=== PATIENT | male | born 1990 | race Caucasian/White ===

== ENCOUNTER → 2023-09-21 14:26 | Outpatient (BNVA) | payer OTHER, SELFPAY | PROVIDERS: Visit Provider Physician Assistant Medical | DX: S61.311A Laceration without foreign body of left index finger with damage to nail, initial encounter (principal); W31.89XA Contact with other specified machinery, initial encounter; Z23 Encounter for immunization | CPT/HCPCS: 99213 ==

== ENCOUNTER → 2023-09-28 15:26 | Outpatient (BNVA) | payer OTHER, SELFPAY | PROVIDERS: Visit Provider Physician Assistant Medical | DX: S61.311D Laceration without foreign body of left index finger with damage to nail, subsequent encounter (principal); W31.89XD Contact with other specified machinery, subsequent encounter | CPT/HCPCS: 99213 ==

== ENCOUNTER 2024-05-11 01:36 | Emergency (ER) | payer BC, SELFPAY ==
[2024-05-11 01:47] VITALS: BP 122/69; BP 133/67; PULSE 104; PULSE 97; RESP 16; TEMP 36.8; O2SAT 94; O2SAT 97; BMI 29.2
[2024-05-11 01:50] LABS: Glucose, Whole Blood 67 mg/dL (60-115)
[2024-05-11 01:53] VITALS: BP 122/69; PULSE 97; RESP 16; TEMP 36.8; O2SAT 94
[2024-05-11 02:06] LABS: MANUAL DIFF FLAG NO
[2024-05-11 02:08] LABS: Basophils Percent Auto 0.5 % (0-2); Eosinophils Absolute Auto 0.1 X10*3/uL (0.0-0.4); Eosinophils Percent Auto 1.1 % (0-4); Hematocrit 37.5 % (42.0-52.0); Hemoglobin 13.9 g/dl (14.0-18.0); Imm Gran Abs Auto 0.03 X10*3/uL (0.00-0.03); Imm Gran Pct Auto 0.4 % (0.0-0.4); Lymphocytes Absolute Auto 0.3 X10*3/uL (1.2-4.9); Lymphocytes Percent Auto 4.3 % (20-40); Mean Corpuscular HGB Conc 37.1 g/dl (31.0-36.0); Mean Corpuscular Hemoglobin 30.5 pg (27.0-33.0); Mean Corpuscular Volume 82.4 fL (80.0-98.0); Mean Platelet Volume 9.9 fL (9.4-12.4); Monocytes Absolute Auto 0.6 X10*3/uL (0.1-1.2); Monocytes Percent Auto 7.4 % (2-11); Neutrophils Absolute Auto 6.5 x10*3/uL (2.0-8.3); Neutrophils Percent Auto 86.3 % (45-73); Platelet Count 225 X10*3/uL (160-400); Red Blood Count 4.55 X10*6/uL (4.60-5.80); Red Cell Distribution Width 11.7 % (11.0-16.0); White Blood Count 7.5 X10*3/uL (4.8-10.8)
[2024-05-11 02:24] LABS: Anion Gap 14 (12-20); Blood Urea Nitrogen 19 mg/dL (9-16); Calcium 8.8 mg/dL (8.4-10.2); Carbon Dioxide 24 mmol/L (22-29); Chloride 105 mmol/L (96-108); Creatinine Clr Calc Pharmacy 136.5; Estimated Glomerular Filt Rate > 60; Glucose Random 69 mg/dL (60-115); Potassium 3.5 mmol/L (3.3-5.1); Sodium 139 mmol/L (135-145)
[2024-05-11 02:35] LABS: Glucose, Whole Blood 98 mg/dL (60-115)
--- NOTE | 2024-05-11 03:01 | ED_ITS ---
HPI - Abdominal Pain General Chief Complaint: Nausea/Vomiting/Diarrhea Stated Complaint: NAUSEA/VOMITING Time Seen by Provider: 05/11/24 02:15 Source: patient Mode of arrival: ambulatory Limitations: no limitations History of Present Illness ED Provider: HPI narrative: Patient is diabetic type1 was at soccer game not drinking enough noticed blood sugar been on the higher side used 21 units of insulin on arrival patient's blood sugar was 67 improved to 98 no abdominal pain no had slight nausea earlier no vomiting Related Data Previous Rx's ?Medication ?Instructions ?Recorded amoxicillin 875 mg-potassium 1 tab PO BID 10 days #20 tabs 09/18/23 clavulanate 125 mg tablet Allergies Allergy/AdvReac Type Severity Reaction Status Date / Time No Known Allergies Allergy Verified 05/11/24 01:50 Review of Systems Review of Systems Yes all other systems are reviewed and are negative [facility] Social History Social History Smoked in Last 30 Days: No Use of substances other than those prescribed or required for medical reasons: No Advance Directives: No Physical Exam ED Vital Signs: Vital Signs - 24 hr 05/11/24 01:47 05/11/24 01:53 05/11/24 04:00 Temperature 98.2 F 98.2 F 98.6 F Pulse Rate 97 97 84 Respiratory Rate 16 16 16 Blood Pressure 122/69 122/69 116/56 L Pulse Oximetry 94 94 96 Oxygen Delivery Method Room Air Room Air Room Air 05/11/24 04:45 Temperature 98.6 F Pulse Rate 84 Respiratory Rate 16 Blood Pressure 116/56 L Pulse Oximetry 96 Oxygen Delivery Method Room Air BMI result Body Mass Index 29.2 Appearance: Alert. Oriented X3. No acute distress. Eyes: No pallor or icterus ENT: Pharynx normal. Oral Mucosa moist Neck: Normal inspection. Neck supple. CVS: Normal heart rate and rhythm. Pulses normal. Respiratory: No respiratory distress. Equal air entry bilateral, no wheezing/rales/rhonchi Abdomen: Soft and nontender. Bowel sounds are present, no mass palpable, no CVA tenderness Skin: Skin warm and dry. Normal skin color. Normal skin turgor. Extremities: No lower extremity edema. No calf tenderness Neuro: Oriented X 3. No motor deficit. No sensory deficit.No cerebellar signs , cranial nerves II-XII intact Medical Decision Making Medical Decision Making [facility] Narrative: Patient is type 1 diabetic with elevated sugar IV fluids were given patient improved not in ketoacidosis Lab Data [facility] Lab Attestation statement: I reviewed the patient's lab results. 05/11/24 02:03 05/11/24 02:03 Labs: Lab Results 05/11/24 05/11/24 05/11/24 Range/Units 01:45 02:03 02:29 WBC 7.5 (4.8-10.8) X10*3/uL RBC 4.55 L (4.60-5.80) X10*6/uL Hgb 13.9 L (14.0-18.0) g/dl Hct 37.5 L (42.0-52.0) % MCV 82.4 (80.0-98.0) fL MCH 30.5 (27.0-33.0) pg MCHC 37.1 H (31.0-36.0) g/dl RDW 11.7 (11.0-16.0) % Plt Count 225 (160-400) X10*3/uL MPV 9.9 (9.4-12.4) fL Immature Gran % (Auto) 0.4 (0.0-0.4) % Neut % (Auto) 86.3 H (45-73) % Lymph % (Auto) 4.3 L (20-40) % [place] % (Auto) 7.4 (2-11) % Eos % (Auto) 1.1 (0-4) % Baso % (Auto) 0.5 (0-2) % Lymph # (Auto) 0.3 L (1.2-4.9) X10*3/uL [place] # (Auto) 0.6 (0.1-1.2) X10*3/uL Eos # (Auto) 0.1 (0.0-0.4) X10*3/uL Baso # (Auto) 0.0 (0.0-0.2) X10*3/uL Abs Immat Gran (auto) 0.03 (0.00-0.03) X10*3/uL Absolute Neuts (auto) 6.5 (2.0-8.3) x10*3/uL Absolute Nucleated RBC 0.000 (0.0-0.012) X10*3/uL Nucleated RBC % (auto) 0.0 (0.0-0.2) /100WBC Sodium 139 (135-145) mmol/L Potassium 3.5 (3.3-5.1) mmol/L Chloride 105 (96-108) mmol/L Carbon Dioxide 24 (22-29) mmol/L Anion Gap 14 (12-20) BUN 19 H (9-16) mg/dL Creatinine 0.94 (0.5-1.4) mg/dL Estim Creat Clear Calc 136.5 Estimated GFR > 60 POC Glucose 67 98 (60-115) mg/dL Random Glucose 69 (60-115) mg/dL Calcium 8.8 (8.4-10.2) mg/dL Medications Administered Discontinued Medications Generic Name Dose Route Start Last Admin Trade Name Freq PRN Reason Stop Dose Admin Sodium Chloride 1,000 mls @ 999 mls/hr 05/11/24 03:09 05/11/24 04:26 Ns IV 05/11/24 04:09 Infused .Q1H1M ONE Infusion Discharge Plan Discharge Clinical Impression: Hyperglycemia due to diabetes mellitus Patient Disposition: Home, Self-Care Instructions: Diabetic Hyperglycemia (ED) Additional Instructions: Drink plenty of fluids Diabetic management as advised Prescriptions: No Action amoxicillin-pot clavulanate 875-125 mg tablet 1 tab PO BID 10 Days Qty: 20 0RF Interventions: ED Discharge Assessment Last Done: 05/11/24 04:45 Discharge Date/Time: 05/11/24 04:51 Print Language: [place] Citizen
[2024-05-11] MEDS: 0.9 % Sodium Chloride 1,000 ML 999 ML IV (03:16)
[2024-05-11 04:00] VITALS: BP 116/56; PULSE 84; RESP 16; TEMP 37; O2SAT 96
[2024-05-11 04:45] VITALS: BP 116/56; PULSE 84; RESP 16; TEMP 37; O2SAT 96
== END 2024-05-11 04:51 | disposition home or self-care (01) ==
PROVIDERS: Emergency Provider Internal Medicine; PCP Internal Medicine
DX: E11.65 Type 2 diabetes mellitus with hyperglycemia (principal); R11.2 Nausea with vomiting, unspecified; Z79.899 Other long term (current) drug therapy; Z79.4 Long term (current) use of insulin
CPT/HCPCS: 36415; 80048; 82947; 85025; 96360; 99284

== ENCOUNTER 2025-05-20 18:13 | Emergency (ER) | payer BC, SELFPAY ==
[2025-05-20 18:25] VITALS: BP 137/59; BP 139/78; PULSE 90; PULSE 95; RESP 16; TEMP 36.9; O2SAT 100; O2SAT 96; BMI 28.5
[2025-05-20 18:38] LABS: Glucose, Whole Blood 203 mg/dL (60-115)
--- NOTE | 2025-05-20 18:52 | ED.GENADULT ---
HPI - General Adult General Chief complaint: General Medical Stated complaint: hypoglycemia Time Seen by Provider: 05/20/25 18:46 Source: patient Mode of arrival: ambulatory Limitations: no limitations History of Present Illness ED Provider: Dr. Ambrocio [facility] narrative: This is a 34-year-old male history of type 1 diabetes with insulin pump and Dexcom presents to ER today for evaluation of episode of hypoglycemia. Patient was at dinner today when he began to have altered mentation feeling of confusion. His sugar was noted to be 66. The patient stated that he has not been eating much lately. He was up all night long he was shoveling snow outside. He was eating small snacks in between. Otherwise he denies any acute illness no chest pain no belly pain. Related Data Previous Rx's ?Medication ?Instructions ?Recorded amoxicillin 875 mg-potassium 1 tab PO BID 10 days #20 tabs 09/18/23 clavulanate 125 mg tablet Allergies Allergy/AdvReac Type Severity Reaction Status Date / Time No Known Allergies Allergy Verified 05/20/25 18:30 Review of Systems Review of Systems: Pertinent review of systems as mentioned in HPI. All other system otherwise negative. [facility] Past Medical History [facility] Narrative: Medical history as mentioned in [facility] Social History Social History Smoked in Last 30 Days: No Use of substances other than those prescribed or required for medical reasons: No Advance Directives: No Advance Directives Information Provided: No Physical Exam ED Exam Exam: General: Pleasant, no distress, interacting appropriately Head: Normacephalic, atraumatic ENT: oral mucosa moist, neck supple, no tracheal deviation Neurological: Awake and alert, no facial droop noted Skin: Warm and dry Psychiatric: Appropriate mood and thoughts Vital Signs: Vital Signs - 24 hr 05/20/25 18:25 05/20/25 19:06 Temperature 98.5 F Pulse Rate 90 80 Respiratory Rate 16 16 Blood Pressure 137/59 L 129/64 Pulse Oximetry 96 99 Oxygen Delivery Method Room Air Room Air BMI result Body Mass Index 28.5 Medications Administered Discontinued Medications Generic Name Dose Route Start Last Admin Trade Name Freq PRN Reason Stop Dose Admin Sodium Chloride 1,000 mls @ 999 mls/hr 05/20/25 20:00 05/20/25 21:20 Ns IV 05/20/25 21:00 Infused .Q1H1M MARIA VICTORIA Infusion Medical Decision Making Medical Decision Making [facility] Narrative: 34-year-old male history of type 1 diabetes presented hospital today for evaluation of hypoglycemia episode. Patient appear to be mentating appropriately on my evaluation. Sugar is holding at 203 currently. We will plan to give patient additional sandwiches. More food will be provided the patient. We will obtain basic lab work for the patient at this time. We will plan to give patient a bolus IV fluid as well. Sugar remains elevated above 200 at this time. Patient slight leukocytosis 10.9. I do not think this is from infectious sources for the patient. Discussed the results of his lab work with the patient. Patient is feeling well. We will plan to discharge patient as well. Discussed with the patient about cutting back his mealtime insulin to see if this will help with his hypoglycemia. Differential Diagnosis Differential Diagnoses: The differential diagnosis associated with the presentation includes Hypoglycemia, diabetes, dehydration Lab Data [facility] Lab Attestation statement: I reviewed the patient's lab results. 05/20/25 20:40 05/20/25 20:40 Labs: Lab Results 05/20/25 05/20/25 Range/Units 18:35 20:40 WBC 10.9 H (4.8-10.8) X10*3/uL RBC 4.47 L (4.60-5.80) X10*6/uL Hgb 13.3 L (14.0-18.0) g/dl Hct 37.8 L (42.0-52.0) % MCV 84.6 (80.0-98.0) fL MCH 29.8 (27.0-33.0) pg MCHC 35.2 (31.0-36.0) g/dl RDW 11.7 (11.0-16.0) % Plt Count 257 (160-400) X10*3/uL MPV 9.6 (9.4-12.4) fL Immature Gran % (Auto) 0.2 (0.0-0.4) % Neut % (Auto) 82.3 H (45-73) % Lymph % (Auto) 9.6 L (20-40) % [place] % (Auto) 5.7 (2-11) % Eos % (Auto) 1.6 (0-4) % Baso % (Auto) 0.6 (0-2) % Lymph # (Auto) 1.0 L (1.2-4.9) X10*3/uL [place] # (Auto) 0.6 (0.1-1.2) X10*3/uL Eos # (Auto) 0.2 (0.0-0.4) X10*3/uL Baso # (Auto) 0.1 (0.0-0.2) X10*3/uL Abs Immat Gran (auto) 0.02 (0.00-0.03) X10*3/uL Absolute Neuts (auto) 8.9 H (2.0-8.3) x10*3/uL Absolute Nucleated RBC 0.000 (0.0-0.012) X10*3/uL Nucleated RBC % (auto) 0.0 (0.0-0.2) /100WBC Sodium 139 (135-145) mmol/L Potassium 4.1 (3.3-5.1) mmol/L Chloride 109 H (96-108) mmol/L Carbon Dioxide 24 (22-29) mmol/L Anion Gap 10 L (12-20) BUN 14 (9-16) mg/dL Creatinine 0.92 (0.5-1.4) mg/dL Estim Creat Clear Calc 136.7 Estimated GFR > 60 POC Glucose 203 H (60-115) mg/dL Random Glucose 241 H (60-115) mg/dL Calcium 8.2 L D (8.4-10.2) mg/dL Discharge Plan Discharge Clinical Impression: Hypoglycemia Patient Disposition: Home, Self-Care Instructions: Hypoglycemia in a Person with Diabetes (ED) Additional Instructions: Follow up with your wafer machine operator for management if your insulin pump. Consider cutting back on your meal time insulin dosage. Prescriptions: No Action amoxicillin-pot clavulanate 875-125 mg tablet 1 tab PO BID 10 Days Qty: 20 0RF Print Language: [place] Islander
--- OUTSIDE RECORDS SUMMARY | 2025-05-20 18:59 | XMS_ITS | Encounter Summary ---
Author Organization [facility] Address [address] [facility] [facility] [address] [place] [address] Phone Care Team Providers Care School Business Manager Name Role Phone Bigda, Stevie A DO Primary Care Provider [phone] Bigda, Stevie A DO Primary Care Provider [phone] Bigda, Stevie A DO Unavailable Bigda, Stevie A DO Primary Care Provider [phone] Encounter Details Date Type Department Care Team (Late st Contact Info) Description 06/23/2017 Ancillary Orders [facility], X-Ray - [address] [address] Sarah Greenberg, ELECTRON GUN INSPECTOR [address] [place] [address] [email or web address] Pain in both knees, unspecified chronicity Social History Tobacco Use Types Packs/Day Years Used Date Smoking Tobacco: Never Assessed Sex and Gender Information Value Date Recorded Sex Assigned at Male 01/09/2018 5:37 AM EDT Legal Sex Male 9:00 PM EDT Gender Identity Male 01/09/2018 5:37 AM EDT Sexual Orientation Straight 01/09/2018 5: 37 AM EDT documented as of this encounter Plan of Treatment Not on file documented as of this encounter Results * XR Knee Standing (Bilateral, Single View Only) (06/23/2017 12:59 PM EST) Anatomical Region Laterality Modality Knee Right, Knee Bilateral Radio graphic Imaging 06/23/2017 1:11 PM EST Impressions 06/23/2017 1:13 PM EST Unremarkable AP standing view of the knees. No explanation for knee pain is seen. S/S: Bilateral knee pain, history of surgery left knee POS - [id number] Narrative 06/23/2017 1:13 PM EST COMPARISON: Left knee x-ray April 22, 2014 and right knee x-ray July 30, 2013 FINDINGS: AP standing views of the knees are obtained. No joint space narrowing or significant bony spurring is evident. No bony sclerosis or osteopenia is evident. No subluxation is seen. Procedure Note Emerson Cheng MD - 06/23/2017 COMPARISON: Left knee x-ray April 22, 2014 and right knee x-ray 2013 FINDINGS: AP standing views of the knees are obtained. No joint space narrowing or significant bony spurring is evident. No bony sclerosis or osteopenia is evident. No subluxation is seen. IMPRESSION: Unremarkable AP standing view of the knees. No explanation for knee painis seen. S/S: Bilateral knee pain, history of surgery left knee POS - [id number] us Sarah Greenberg ELECTRON GUN INSPECTOR IMG XR LOWER EXTREMITY Dulce l Result documented in this encounter Visit Diagnoses Diagnosis Pain in both knees, unspecified chronicity Pain in both knees, unspecified chronicity documented in this encounter Care Teams School Business Manager Relationship Specialty Start Date End Date Stevie Coon DO [email or web address] PCP - General Internal Medicine 06/23/17 01/03/18 Stevie Coon DO [email or web address] PCP - General Internal Medicine 01/04/18 06/16/24 Stevie Coon DO [address] [place] [address] [email or web address] PCP - General Internal Medicine 06/17/24 Stevie Coon DO [address] [place] [address] [email or web address] Insurance Assigned Provider 08/29/23 documented as of this encounter Additional Source Comments The information contained in this document represents components of the legal health record. It is not the complete legal health record.[facility]
--- OUTSIDE RECORDS SUMMARY | 2025-05-20 18:59 | XMS_ITS | Encounter Summary ---
Author Organization [facility] Address [address] [facility] [address] [place] [address] Phone Care Team Providers Care It Help Desk Manager Name Role Phone Bigda, Stevie A DO Primary Care Provider [phone] Bigda, Stevie A DO Primary Care Provider [phone] Bigda, Stevie A DO Unavailable Bigda, Stevie A DO Primary Care Provider [phone] Encounter Details Date Type Department Care Team (Latest Contact Info) Description 07/09/2017 Transcribe Orders [facility] Specimen Processing [address] [place] [address] Jair Valdez MD [address] [place] [id number] [email or web address] Change in bowel habits (Primary Dx) Social History Tobacco Use Types Packs/Day Years Used Date Smoking Tobacco: Never Smokeless Tobacco: Never Sex and Gender Information Value Date Recorded Sex Assigned at Male 01/09/2018 5:37 AM EDT Legal Sex Male 9:00 PM EDT Gender Identity Male 01/09/2018 5:37 AM EDT Sexual Orientation Straight 01/09/2018 5: 37 AM EDT documented as of this encounter Plan of Treatment Not on file documented as of this encounter Results * C. difficile PCR (07/09/2017 2:20 PM EST) C.DIFFICILE PCR Negative Negative [facility] C.DIFFICILE STRAIN PRESUMPTIVE NEGATIVE PRESUMPTIVE NEGATIVE [facility] Comment:Detection of 027/NAP 1/BI strains of C.difficile is presumptive and is solely for epidemiological purposes and is not intended to guide or monitor treatment of infections. Stool (Stool) 07/09/2017 2:2 0 PM EST 07/09/2017 2:22 PM EST us Jair Valdez MD LAB BODY FLUIDS AND STOOL OR DERABLES Final Result Performing Organization Address City/[facility]/ZIP Co de Phone Number [address] [address] * Ova and parasites, stool (07/09/2017 2:20 PM EST) Specimen Source/ Description STOOL STOOL [facility] Special Requests None [facility] DIRECT EXAM No parasites found by Trichrome Stain [facility] DIRECT EXAM NO PARASITES FOUND BY DIRECT OR CONCENTRATION METHODS [facility] Report Status 07/16/2017 FINAL [facility] Stool (Stool) 07/09/2017 2:2 0 PM EST 07/09/2017 2:21 PM EST us Jair Valdez MD LAB BODY FLUIDS AND STOOL OR DERABLES Final Result Performing Organization Address [facility] Co de Phone Number [address] [address] * (ABNORMAL) Stool culture (07/09/2017 2:20 PM EST) Specimen Source/ Description STOOL STOOL [facility] Special Requests None [facility] Culture/Test NO SALMONELLA, SHIGELLA OR CAMPYLOBACTER ISOLATED(A) [facility] Report Status 07/12/2017 FINAL [facility] Stool (Stool) 07/09/2017 2:2 0 PM EST 07/09/2017 2:21 PM EST us Jair Valdez MD LAB MICROBIOLOGY CULTURE ORD ERABLES Final Result [address] [address] documented in this encounter Visit Diagnoses Diagnosis Change in bowel habits- Primary Other symptoms involving digestive system documented in this encounter Care Teams It Help Desk Manager Relationship Specialty Start Date End Date Stevie Coon DO PCP - General Internal Medicine 06/23/17 01/03/18 Stevie Coon DO PCP - General Internal Medicine 01/04/18 06/16/24 Stevie Coon DO [address] [place] [address] PCP - General Internal Medicine 06/17/24 Stevie Coon DO [address] [place] [address] Insurance Assigned Provider 08/29/23 documented as of this encounter Additional Source Comments The information contained in this document represents components of the legal health record. It is not the complete legal health record.[facility]
--- OUTSIDE RECORDS SUMMARY | 2025-05-20 18:59 | XMS_ITS | Encounter Summary ---
Author Organization [facility] Address [address] [facility] [address] [place] [address] Phone Care Team Providers Care Lead Applier Name Role Phone Stevie Coon DO Primary Care Provider [phone] Stevie Coon DO Unavailable Stevie Coon DO Primary Care Provider [phone] Encounter Details Date Type Department Care Team (Late st Contact Info) Description 01/04/2018 Procedure Pass [facility], Ct Scan - [address] [address] Social History Tobacco Use Types Packs/Day Years Used Date Smoking Tobacco: Never Smokeless Tobacco: Never Alcohol Use Standard Drinks/Week Comments Yes 0 (1 standard drink = 0.6 oz pur e alcohol) socially Sex and Gender Information Value Date Recorded Sex Assigned at Male 01/09/2018 5:37 AM EDT Legal Sex Male 9:00 PM EDT Gender Identity Male 01/09/2018 5:37 AM EDT Sexual Orientation Straight 01/09/2018 5: 37 AM EDT documented as of this encounter Plan of Treatment Not on file documented as of this encounter Visit Diagnoses Not on filedocumented in this encounter Care Teams Lead Applier Relationship Specialty Start Date End Date Stevie Coon DO PCP - General Internal Medicine 01/04/18 06/16/24 Stevie Coon DO [address] [place] [address] [email or web address] PCP - General Internal Medicine 06/17/24 Stevie Coon DO [address] [place] [address] Insurance Assigned Provider 08/29/23 documented as of this encounter Additional Source Comments The information contained in this document represents components of the legal health record. It is not the complete legal health record.[facility]
--- OUTSIDE RECORDS SUMMARY | 2025-05-20 18:59 | XMS_ITS | Clinical Summary ---
Author Organization [facility] Address [address] [facility] [address] [place] [address] Phone Care Team Providers Care Tray Casting Machine Operator Name Role Phone Stevie Coon Unavailable Shaggy Stevie Weber DO Primary Care Provider [phone] Allergies No known active allergies Medications ibuprofen (ADVIL,MOTRIN) 600 MG tablet Take 1 tablet (600 mg total) by mouth every 6 (six) hours as needed for pain (specific location in comments). 15 tablet 8 Active insulin aspart U-100 (NOVOLOG) 100 unit/mL Crtg Inject under the skin once. Must be used with delivery device, insulin pump provides basal and bolus rates. Active ondansetron (ZOFRAN-ODT) 4 MG disintegrating tablet Take 1 tablet (4 mg total) by mouth every 8 (eight) hours as needed for nausea. 10 tablet 5 Active Social History Tobacco Use Types Packs/Day Years Used Date Smoking Tobacco: Never Smokeless Tobacco: Never Alcohol Use Standard Drinks/Week Comments Yes 0 (1 standard drink = 0.6 oz pur e alcohol) socially Education Answer Date Recorded Are you interested in more education? Not on chavo e 09/19/2022 Are you concerned about learning? Not on file 09/19/2022 No 09/19/2022 No 09/19/2022 Food Answer Date Recorded Within the past 6 months we worried whether our food would run out before we got money to buy more. Never True 09/18/2024 Within the past 6 months the food we bought just didn't last and we didn't have enough money to get more. Never True Residential Stability Answer Date Recor ded What is your housing situation today? I have adrianne arboleda 09/18/2024 How many times have you move d in the past 12 months? Zero (I did not move) 09/18/2024 Paying for Meds Answer Date Recorded Do you have trouble paying for medicines? No 09/18/2024 Paying Utility Bills Answer Date Record ed Do you have trouble paying your heating or elect ricity bill? No 09/18/2024 Transportation Answer Date Recorded Has the lack of transportati on kept you from medical appointments or from getting medications? No 09/18/2024 Digital Access Answer Date Recorded No 09/18/2024 Yes 09/18/2024 Do you have reliable internet access at home? Ye s 09/18/2024 Do you have a device (e.g., phone, tablet, computer) with a working camera? Yes 09/18/2024 Intimate Partner Violence Answer Date R ecorded Are you denied basic needs s uch as food, clothing, or medical care? No 09/18/2024 In the past 12 months have y ou been in a relationship with a person who hurts, threatens, or tries to control you? No 09/18/2024 Are you denied basic needs s uch as food, clothing, or medical care? No 09/18/2024 In the past 12 months have y ou been in a relationship with a person who hurts, threatens, or tries to control you? No 09/18/2024 Sex and Gender Information Value Date Recorded Sex Assigned at Male 01/09/2018 5:37 AM EDT Legal Sex Male 9:00 PM EDT Gender Identity Male 01/09/2018 5:37 AM EDT Sexual Orientation Straight 01/09/2018 5: 37 AM EDT Last Filed Vital Signs Vital Sign Reading Time Taken Comments Blood Pressure 125/69 09/18/2024 2:51 PM EDT Pulse 58 09/18/2024 2:51 PM EDT Temperature 36.1 C (97 F) 09/18/2024 2:51 PM EDT Respiratory Rate 16 09/18/2024 2:51 PM EDT Oxygen Saturation 99% 09/18/2024 2:51 PM EDT Inhaled Oxygen Concentration - - Weight 90.3 kg (199 lb) 09/18/2024 11:01 AM EDT Height 182.9 cm (6') 09/18/2024 11:01 AM EDT Body Mass Index 26.99 09/18/2024 11:01 AM EDT Plan of Treatment Health Maintenance Due Date Last Done Comments Adult Td,Tdap Booster 1991 BLOOD PRESSURE 1991 DEPRESSION SCREENING 2003 HEPATITIS C SCREENING 09/06/2009 HIV ONE-TIME SCREENING (18-65 YEARS) 09/06/2009 PNEUMOCOCCAL VACCINES (0-49 years) (2 of 2 - PCV) 06/30/2020 06/30/2019, 05/25/2011, 05/25/2009 HEMOGLOBIN A1C 06/12/2024 12/11/2023, 06/26, 07/16/2022, Additional history exists LIPID PANEL 07/16/2024 07/16/2023, 06/26, 07/16/2022 DIABETIC EYE EXAM 09/09/2024 URINE MICROALBUMIN/CREATININE RATIO 09/09/2024 07/16/2023, 02/05/2022, 02/05/2022 INFLUENZA VACCINE (#1) 2024 07/04/2019 COVID-19 VACCINE (2 - season) 2025 09/28/2020 COLOGUARD 04/18/2025 FIT TEST 04/18/2025 FOBT 04/18/2025 07/07/2017 SIGMOIDOSCOPY 04/18/2025 VIRTUAL COLONOSCOPY 04/18/2025 COLONOSCOPY 07/09/2032 07/09/2017 COLORECTAL CANCER SCREENING 07/09/2032 MENINGOCOCCAL VACCINES (ACWY) Completed 05/25/2010, 05/25/2006 SMOKING STATUS SCREENING (Once After 26 Yrs) Completed 01/09/2018 HEPATITIS A VACCINES Aged Out No long er eligible based on patient's age to complete this topic HIB VACCINES Aged Out No longer eligi ble based on patient's age to complete this topic MENINGOCOCCAL VACCINES (B) Aged Out N o longer eligible based on patient's age to complete this topic Medical Devices Not on file Procedures Procedure Name Priority Date/Time Associated Diagnosis Comments COLONOSCOPY FOR RESULT ENTRY ONLY Routine 07/09/2017 FECAL OCCULT BLOOD, MULTIPLE Routine 07/07/2017 6:24 PM EST Change in bowel habits Diarrhea, unspecified type from Last 3 Months or Most Recently Relevant to Health Maintenance Results * COLONOSCOPY FOR RESULT ENTRY ONLY (07/09/2017) HM Colonoscopy External Historical Provider MD HEALTH MAINTENANCE Final Result * Fecal occult blood, multiple (07/07/2017 6:24 PM EST) FECAL OCC BLD 1 DATE 21,118 [facility] Occult bld, stool, #1 Negative Negative [facility] FECAL OCC BLD 2 DATE 21,218 [facility] OCCULT BLD, STOOL, #2 Negative Negative [facility] FECAL OCC BLD 3 DATE 21,318 [facility] FECAL OCC BLD 3 RSLT Negative Negative [facility] Stool (Stool) 07/07/2017 6:2 4 PM EST 07/07/2017 6:27 PM EST Stephanie Hernández PA-C BODY FLUIDS AND STOOLS ORDERABL ES Final Result [facility] [address] [place] [address] from Last 3 Months or Most Recently Relevant to Health Maintenance Insurance [facility] Care Teams Tray Casting Machine Operator Relationship Specialty Start Date End Date Stevie Coon DO [address] [place] [address] [email or web address] PCP - General Internal Medicine 06/17/24 Stevie Coon DO [address] [place] [address] [email or web address] Insurance Assigned Provider 08/29/23 Additional Source Comments The information contained in this document represents components of the legal health record. It is not the complete legal health record.[facility]
--- OUTSIDE RECORDS SUMMARY | 2025-05-20 18:59 | XMS_ITS | Encounter Summary ---
Author Organization [facility] Address [address] [facility] [address] [place] [address] Phone Care Team Providers Care Color Worker Name Role Phone Bigda, Stevie A DO Primary Care Provider [phone] Bigda, Stevie A DO Unavailable Bigda, Stevie A DO Primary Care Provider [phone] Encounter Details Date Type Department Care Team (Late st Contact Info) Description 06/30/2023 Ancillary Orders [facility], X-Ray - [address] [address] Ashly Ge PA [address] [facility] [place] [address] [place] [address] Maxillary fracture, left side, initial encounter for closed fracture (Primary Dx) Social History Tobacco Use Types Packs/Day Years Used Date Smoking Tobacco: Never Smokeless Tobacco: Never Alcohol Use Standard Drinks/Week Comments Yes 0 (1 standard drink = 0.6 oz pur e alcohol) socially Education Answer Date Recorded Are you interested in more education? Not on chavo e 09/19/2022 Are you concerned about learning? Not on file 09/19/2022 No 09/19/2022 No 09/19/2022 Digital Access Answer Date Recorded No 10/17/2022 No 10/17/2022 No 10/17/2022 Reliable internet access at home? Not on file 10/17/2022 Device with a working camera? Not on file Sex and Gender Information Value Date Recorded Sex Assigned at Male 01/09/2018 5:37 AM EDT Legal Sex Male 9:00 PM EDT Gender Identity Male 01/09/2018 5:37 AM EDT Sexual Orientation Straight 01/09/2018 5: 37 AM EDT documented as of this encounter Plan of Treatment Not on file documented as of this encounter Results * XR FACIAL BONES 3 OR MORE VIEWS (06/30/2023 5:20 PM EST) Anatomical Region Laterality Modality Face Computed Radiogr aphy 07/01/2023 11:3 5 AM EST Impressions 07/01/2023 11:41 AM EST No acute bony abnormality identified. CT would be recommended if there is clinical suspicion of sub-radiographic fracture. POS - [id number] Narrative 07/01/2023 11:41 AM EST COMPARISON: None FINDINGS: Visualized regional skeletal structures are intact. No air-fluid level detected in the visualized paranasal sinuses. Procedure Note Jayce Zapata MD - 07/01/2023 COMPARISON: None FINDINGS: Visualized regional skeletal structures are intact. No air-fluid leveldetected in the visualized paranasal sinuses. IMPRESSION: No acute bony abnormality identified. CT would be recommended if there isclinical suspicion of sub-radiographic fracture. POS - [id number] Ashly DIAZ IMG XR HEAD AND SHUNT SERIE S Final Result documented in this encounter Visit Diagnoses Diagnosis Maxillary fracture, left side, initial encounter for closed fracture- Primary Maxillary fracture, left side, initial encounter for closed fracture documented in this encounter Care Teams Color Worker Relationship Specialty Start Date End Date Stevie Coon DO PCP - General Internal Medicine 01/04/18 06/16/24 Stevie Coon DO [address] [place] [address] PCP - General Internal Medicine 06/17/24 Stevie Coon DO [address] [place] [address] Insurance Assigned Provider 08/29/23 documented as of this encounter Additional Source Comments The information contained in this document represents components of the legal health record. It is not the complete legal health record.[facility]
--- OUTSIDE RECORDS SUMMARY | 2025-05-20 18:59 | XMS_ITS | Encounter Summary ---
Author Organization [facility] Address [address] [facility] [address] [place] [address] Phone Care Team Providers Care Topper Packer Name Role Phone Stevie Coon Unavailable Shaggy Stevie Weber DO Primary Care Provider [phone] Encounter Details Date Type Department Care Team (Late st Contact Info) Description 09/18/2024 Procedure Pass [facility], Ct Scan - [facility] [address] [place] [address] Social History Tobacco Use Types Packs/Day Years [...] your housing situation today? I have adrianne sing 09/18/2024 How many times have you move [...] on filedocumented in this encounter Care Teams Topper Packer Relationship Specialty Start Date End Date Stevie Coon DO [address] [place] [address] [email or web address] PCP - General Internal Medicine 06/17/24 Stevie Coon DO [address] [place] [address] [email or web address] Insurance Assigned Provider 08/29/23 documented as of this encounter Additional Source Comments The information contained in this document represents components of the legal health record. It is not the complete legal health record.[facility]
--- OUTSIDE RECORDS SUMMARY | 2025-05-20 18:59 | XMS_ITS | Encounter Summary ---
Author Organization [facility] Address [address] [facility] [address] [place] [address] Phone Care Team Providers Care Rn Complex Care Name Role Phone Stevie Coon DO Primary Care Provider [phone] Stevie Coon DO Unavailable Stevie Coon DO Primary Care Provider [phone] Reason for Referral * Physical Therapy (Routine) - Closed Specialty Diagnoses / Procedures Referred By Daniel jung Referred To Contact Physical Therapy Diagnoses Encounter for rehabilitation Stevie Coon DO Phone: tel: fax: [email or web address] [address] [place] [address] Phone: tel: Referral ID Status Reason Start Date Expiration Date Visits Re quested Visits Authorized [id number] Closed 05/04/2019 05/24/2020 9 9 Encounter Details Date Type Department Care Team (Late st Contact Info) Description 05/04/2019 Transcribe Orders [facility] [address] [place] [address] Stevie Coon DO [address] [place] [address] Encounter for rehabilitation (Primary Dx) Social History Tobacco Use Types [...] on file documented as of this encounter Procedures Procedure Name Priority Date/Time Associated Diagnosis Comments AMB REFERRAL TO [facility] PHYSICAL THERAPY Routine 05/31/2019 8:59 AM EST Encounter for rehabilitation documented in this encounter Results * Ambulatory referral to [facility] Physical Therapy (05/31/2019 8:59 AM EST) us Stevie Coon DO AMB [facility] REFERRALS Final Result documented in this encounter Visit Diagnoses Diagnosis Encounter for rehabilitation- Primary documented in this encounter Care Teams Rn Complex Care Relationship Specialty Start Date End Date Stevie Coon DO PCP - General Internal Medicine 01/04/18 06/16/24 Stevie Coon DO [address] [place] [address] PCP - General Internal Medicine 06/17/24 Stevie Coon DO [address] [place] [address] Insurance Assigned Provider 08/29/23 documented as of this encounter Additional Source Comments The information contained in this document represents components of the legal health record. It is not the complete legal health record.[facility]
--- OUTSIDE RECORDS SUMMARY | 2025-05-20 18:59 | XMS_ITS | Encounter Summary ---
Author Organization [facility] Address [address] [facility] [address] [place] [address] Phone Care Team Providers Care Special Police Name Role Phone Bigda, Stevie A DO Primary Care Provider [phone] Bigda, Stevie A DO Unavailable Bigda, Stevie A DO Primary Care Provider [phone] Encounter Details Date Type Department Care Team (Latest Contact Info) Description 06/13/2024 Transcribe Orders Virtual Department [address] [place] [address] Ashly Ge PA [address] [place] [address] [place] [address] Localized superficial swelling, mass, or lump (Primary Dx) Social History Tobacco Use Types [...] with a working camera? Not on file Intimate Partner Violence Answer Date R ecorded Are you denied basic needs s uch as food, clothing, or medical care? No 12/07/2023 In the past 12 months have y ou been in a relationship with a person who hurts, threatens, or tries to control you? No 12/07/2023 Are you denied basic needs s uch as food, clothing, or medical care? No 12/07/2023 In the past 12 months have y ou been in a relationship with a person who hurts, threatens, or tries to control you? No 12/07/2023 Sex and Gender Information Value Date Recorded Sex Assigned at Male 01/09/2018 5:37 AM EDT Legal Sex Male 9:00 PM EDT Gender Identity Male 01/09/2018 5:37 AM EDT Sexual Orientation Straight 01/09/2018 5: 37 AM EDT documented as of this encounter Plan of Treatment Not on file documented as of this encounter Results * US ABDOMINAL WALL (06/17/2024 7:43 AM EST) Anatomical Region Laterality Modality Abdomen Ultrasound 06/20/2024 8:29 AM EST Impressions 06/20/2024 8:32 AM EST No sonographic abnormality identified in the area of concern. If clinical concern persists, consider MR. Narrative 06/20/2024 8:32 AM EST US ABDOMINAL WALL Referring clinician's provided indication for this examination in Epic: Outside Radiology Order; Mass: Other; MASS OF SOFT TISSUE - Abd Wall TECHNIQUE: US Abdominal wall COMPARISON: None FINDINGS: Targeted sonographic evaluation of the right upper quadrant abdominal wall, in the area of the right anteromedial rib cage, was performed by the body mechanic apprentice, and the images were submitted for evaluation. No subcutaneous edema, fluid collection, or mass identified. Procedure Note Kurtis Townsend MD - 06/20/2024 US ABDOMINAL WALL Referring clinician's provided indication for this examination in [facility]:Outside Radiology Order; Mass: Other; MASS OF SOFT TISSUE - Abd Wall TECHNIQUE: US Abdominal wall COMPARISON: None FINDINGS: Targeted sonographic evaluation of the right upper quadrant abdominalwall, in the area of the right anteromedial rib cage, was performed by thesonographer, and the images were submitted for evaluation. No subcutaneousedema, fluid collection, or mass identified. IMPRESSION: No sonographic abnormality identified in the area of concern. If clinicalconcern persists, consider us Ashly DIAZ IMG US ABDOMEN Final Resul t documented in this encounter Visit Diagnoses Diagnosis Localized superficial swelling, mass, or lump- Primary Localized superficial swelling, mass, or lump documented in this encounter Care Teams Special Police Relationship Specialty Start Date End Date Stevie Coon DO [email or web address] PCP - General Internal Medicine 01/04/18 06/16/24 Stevie Coon DO [address] [place] [address] [email or web address] PCP - General Internal Medicine 06/17/24 Stevie Coon DO [address] [place] [address] [email or web address] Insurance Assigned Provider 08/29/23 documented as of this encounter Additional Source Comments The information contained in this document represents components of the legal health record. It is not the complete legal health record.[facility]
--- OUTSIDE RECORDS SUMMARY | 2025-05-20 18:59 | XMS_ITS | Encounter Summary ---
Author Organization [facility] Address [address] [facility] [address] [place] [address] Phone Care Team Providers Care Admission Specialist Name Role Phone DorotheaStevie allison DO Primary Care Provider Bigda, Stevie A DO Unavailable Bigda, Stevie A DO Primary Care Provider [phone] Encounter Details Date Type Department Care Team (Late st Contact Info) Description 07/03/2023 Procedure Pass [facility], Ct Scan - [address] [address] Social History Tobacco Use Types Packs/Day Years [...] on filedocumented in this encounter Care Teams Admission Specialist Relationship Specialty Start Date End Date Stevie Coon DO [email or web address] PCP - General Internal Medicine 01/04/18 06/16/24 Stevie Coon DO [address] [place] [address] [email or web address] PCP - General Internal Medicine 06/17/24 Stevie Coon DO [address] [place] [address] [email or web address] Insurance Assigned Provider 08/29/23 documented as of this encounter Additional Source Comments The information contained in this document represents components of the legal health record. It is not the complete legal health record.[facility]
--- OUTSIDE RECORDS SUMMARY | 2025-05-20 18:59 | XMS_ITS | Encounter Summary ---
Author Organization [facility] Address [address] [facility] [address] [place] [address] Phone Care Team Providers Care Card Scraper Name Role Phone Bigda, Stevie A DO Primary Care Provider [phone] Bigda, Stevie A DO Primary Care Provider [phone] Bigda, Stevie A DO Unavailable Bigda, Stevie A DO Primary Care Provider [phone] Encounter Details Date Type Department Care Team (Latest Contact Info) Description 06/23/2017 Transcribe Orders [facility] Phleb Kath [facility] 2nd [place] [address] Stephanie Hernández PA-C [address], [address] [place] [address] [email or web address] Change in bowel habits (Primary Dx); Diarrhea, unspecified type Social History Tobacco Use Types Packs/Day Years [...] documented as of this encounter Results * Ova and parasites, stool (07/07/2017 6:24 PM EST) Specimen Source/ Description STOOL STOOL STOOL [facility] Special Requests None [facility] DIRECT EXAM No parasites found by Trichrome Stain [facility] DIRECT EXAM NO PARASITES FOUND BY DIRECT OR CONCENTRATION METHODS [facility] Report Status 07/15/2017 FINAL [facility] Stool (Stool) 07/07/2017 6:2 4 PM EST 07/07/2017 6:27 PM EST Stephanie Hernández PA-C LAB BODY FLUIDS AND STOOL ORDER DUSTIN Final Result Performing Organization Address [facility] Co de Phone Number [address] [address] * C. difficile PCR (07/07/2017 6:24 PM EST) C.DIFFICILE PCR Negative Negative [facility] C.DIFFICILE STRAIN PRESUMPTIVE NEGATIVE PRESUMPTIVE NEGATIVE [facility] Comment:Detection of 027/NAP 1/BI strains of C.difficile is presumptive and is solely for epidemiological purposes and is not intended to guide or monitor treatment of infections. Stool (Stool) 07/07/2017 6:2 4 PM EST 07/07/2017 6:28 PM EST Stephanie Hernández PA-C LAB BODY FLUIDS AND STOOL ORDER DUSTIN Final Result Performing Organization Address [facility] Co de Phone Number [address] [address] * Fecal occult blood, multiple (07/07/2017 6:24 PM EST) FECAL OCC BLD 1 DATE 21,118 [facility] Occult bld, stool, #1 Negative Negative [facility] FECAL OCC BLD 2 DATE ,218 [facility] OCCULT BLD, STOOL, #2 Negative Negative [facility] FECAL OCC BLD 3 DATE ,318 [facility] FECAL OCC BLD 3 RSLT Negative Negative [facility] Stool (Stool) 07/07/2017 6:2 4 PM EST 07/07/2017 6:27 PM EST us Stephanie Hernández PA-C BODY FLUIDS AND STOOLS ORDERABL ES Final Result Performing Organization Address [facility]/ZIP Co de Phone Number [address] [address] * (ABNORMAL) Stool culture (07/07/2017 6:24 PM EST) Specimen Source/ Description STOOL STOOL STOOL [facility] Special Requests None [facility] Culture/Test NO SALMONELLA, SHIGELLA OR CAMPYLOBACTER ISOLATED(A) [facility] Report Status 07/10/2017 FINAL [facility] Stool (Stool) 07/07/2017 6:2 4 PM EST 07/07/2017 6:27 PM EST us Stephanie Hernández PA-C LAB MICROBIOLOGY CULTURE ORDERA BLES Final Result Performing Organization Address [facility] Co de Phone Number [address] [address] * Ova and parasites, stool (07/06/2017 6:22 PM EST) Specimen Source/ Description STOOL STOOL STOOL [facility] Special Requests None [facility] DIRECT EXAM No parasites found by Trichrome Stain [facility] DIRECT EXAM NO PARASITES FOUND BY DIRECT OR CONCENTRATION METHODS [facility] Report Status 07/15/2017 FINAL [facility] Stool (Stool) 07/06/2017 6:2 2 PM EST 07/07/2017 6:24 PM EST us Stephanie Hernández PA-C LAB BODY FLUIDS AND STOOL ORDER DUSTIN Final Result Performing Organization Address [facility]/ZIP Co de Phone Number [address] [address] * Ova and parasites, stool (07/05/2017 6:21 PM EST) Specimen Source/ Description STOOL STOOL STOOL [facility] Special Requests None [facility] DIRECT EXAM No parasites found by Trichrome Stain [facility] DIRECT EXAM NO PARASITES FOUND BY DIRECT OR CONCENTRATION METHODS [facility] Report Status 07/15/2017 FINAL [facility] Stool (Stool) 07/05/2017 6:2 1 PM EST 07/07/2017 6:23 PM EST Stephanie Hernández PA-C LAB BODY FLUIDS AND STOOL ORDER DUSTIN Final Result Performing Organization Address [facility]/ZIP Co de Phone Number [address] [address] * Immunoglobulin A (06/23/2017 3:39 PM EST) IgA 131 70 - 400 mg/dL [facility] Blood 06/23/2017 3:39 PM EST 06/23/2017 3:47 PM EST Stephanie Hernández PA-C LAB BLOOD BKR ORDERABLES Final Result Performing Organization Address [facility] Co de Phone Number [address] [address] * (ABNORMAL) C-Reactive Protein (06/23/2017 3:39 PM EST) Pathologist [facility] C REACTIVE PROTEIN <0.0(L) 0 - 0.5 mg/L [facility] Blood 06/23/2017 3:39 PM EST 06/23/2017 3:47 PM EST Stephanie Hernández PA-C LAB BLOOD BKR ORDERABLES Final Result Performing Organization Address [facility] Co de Phone Number [address] [address] * (ABNORMAL) Comprehensive metabolic panel (06/23/2017 3:39 PM EST) SODIUM 140 133 - 146 mmol/L [facility] POTASSIUM 4.7 3.3 - 5.1 mmol/L [facility] CHLORIDE 103 96 - 108 mmol/L [facility] CO2 28 21 - 35 mmol/L [facility] BUN 9 6 - 19 mg/dL [facility] CREATININE 0.80 0.5 - 1.5 mg/dL [facility] GLUCOSE 219(H) 70 - 99 mg/dL [facility] ALBUMIN 4.3 3.9 - 4.8 g/dL [facility] TOTAL PROTEIN 6.9 6.5 - 8.0 g/dL [facility] CALCIUM 9.1 8.4 - 10.3 mg/dL [facility] ALKALINE PHOSPHATASE 58 39 - 117 U/L [facility] TOTAL BILIRUBIN 1.1 0 - 1.2 mg/dL [facility] AST 11 0 - 37 U/L [facility] ALT 10 0 - 40 U/L [facility] GLOBULIN 2.6 1 - 4.8 g/dL [facility] EGFR >60 >60 mL/min/1.7 3m2 [facility] Comment:Abnormal if <60. If patient is -[place], multiply the result by 1.21. ANION GAP 14 10 - 20 mmol/L [facility] Blood 06/23/2017 3:39 PM EST 06/23/2017 3:47 PM EST us Stephanie Hernández PA-C LAB BLOOD BKR ORDERABLES Final Result [address] [address] * CBC and differential (06/23/2017 3:39 PM EST) WBC 6.16 3.40 - 11.20 K/uL [facility] RBC 4.95 4.50 - 5.50 M/uL [facility] HGB 14.6 13.0 - 17.0 g/dL [facility] HCT 42.1 40.0 - 51.0 % [facility] PLT 260 130 - 400 K/uL [facility] MCV 85.1 79.0 - 98.0 fL [facility] MCH 29.5 27.0 - 34.8 pg [facility] MCHC 34.7 31.5 - 36.0 g/dL [facility] RDW 11.7 10.8 - 14.6 % [facility] MPV 11.1 9.4 - 12.4 fl [facility] NRBC 0.00 /100 WBCs [facility] ABSOLUTE NRBC 0.00 K/uL [facility] DIFF METHOD Auto [facility] NEUTS 67.7 45.30 - 77.70 % [facility] LYMPHS 19.5 12.30 - 39.70 % [facility] MONOS 7.5 4.10 - 12.80 % [facility] EOS 4.1 0 - 7.2 % [facility] BASOS 1.0 0 - 2.80 % [facility] Granulocytes, immature (%) 0.2 0.0 - 0.9 % [facility] ABSOLUTE NEUTS 4.18 1.40 - 7.70 K/uL [facility] ABSOLUTE LYMPHS 1.20 0.60 - 3.20 K/uL [facility] ABSOLUTE MONOS 0.46 0.11 - 0.59 K/uL [facility] ABSOLUTE EOS 0.25 0.01 - 0.50 K/uL [facility] ABSOLUTE BASOS 0.06 0.00 - 0.08 K/uL [facility] Granulocytes, immature 0.01 0.00 - 0.05 K/uL [facility] Blood 06/23/2017 3:39 PM EST 06/23/2017 3:47 PM EST us Stephanie Hernández PA-C LAB BLOOD BKR ORDERABLES Final Result [facility] [address] [place] [address] * Tissue transglutaminase IgA (06/23/2017 3:39 PM EST) TTG IGA ANTIBODY <1.2 <4.0 (Negative) U/mL [facility] DPT OF LAB MED AND PAT+ Blood 06/23/2017 3:39 PM EST 06/23/2017 3:48 PM EST us Stephanie Hernández PA-C LAB BLOOD BKR ORDERABLES Final Result [facility] DPT OF LAB MED AND PAT+ [address] [place] [address] documented in this encounter Visit Diagnoses Diagnosis Change in bowel habits- Primary Other symptoms involving digestive system Diarrhea, unspecified type documented in this encounter Care Teams Card Scraper Relationship Specialty Start Date End Date Stevie Coon DO PCP - General Internal Medicine 06/23/17 01/03/18 Stevie Coon DO PCP - General Internal Medicine 01/04/18 06/16/24 Stevie Coon DO [address] [place] [address] PCP - General Internal Medicine 06/17/24 Stevie Coon DO [address] [place] [address] Insurance Assigned Provider 08/29/23 documented as of this encounter Additional Source Comments The information contained in this document represents components of the legal health record. It is not the complete legal health record.[facility]
--- OUTSIDE RECORDS SUMMARY | 2025-05-20 18:59 | XMS_ITS | Encounter Summary ---
Author Organization [facility] Address [address] [place] [address] [place] [address] Phone Care Team Providers Care Clinical Mental Health Counselor Name Role Phone Bigestefany, Stevie A DO Primary Care Provider [phone] Bigda, Stevie A DO Unavailable Bigda, Stevie A DO Primary Care Provider [phone] Reason for Referral * MRI/CAT Scan - Closed Specialty Diagnoses / Procedures Referred By Contac t Referred To Contact Radiology Diagnoses Maxillary fracture, left side, initial encounter for closed fracture Procedures CT Face Ashly Ge PA [address] [facility] [place] [address] Phone: tel: fax: Referral ID Status Reason Start Date Expiration Date Visits Re quested Visits Authorized [id number] Closed 07/03/2023 1 1 Encounter Details Date Type Department Care Team (Latest Contact Info) Description 07/03/2023 Transcribe Orders Virtual Department [address] [place] [address] Ashly Ge PA [address] [facility] [place] [address] Maxillary fracture, left side, initial encounter for closed fracture (Primary Dx) Social History Tobacco Use Types Packs/Day Years Used Date Smoking Tobacco: Never Smokeless Tobacco: Never Alcohol Use Standard Drinks/Week Comments Yes 0 (1 standard drink = 0.6 oz pur e alcohol) socially Education Answer Date Recorded Are you interested in more education? Not on hcavo e 09/19/2022 Are you concerned about learning? [...] documented as of this encounter Results * CT FACE WITHOUT CONTRAST (07/18/2023 1:06 PM EST) Anatomical Region Laterality Modality Face Computed Tomogra phy 07/18/2023 4:01 PM EST Impressions 07/18/2023 4:16 PM EST 1. Comminuted fractures of the left anteroinferior and inferolateral maxillary sinus with mildly hyperdense material within the maxillary sinus suggestive of hemorrhage. 2. Mildly comminuted nondisplaced fracture of the inferior orbital wall anterior to the infraorbital canal. 3. Mildly comminuted nondisplaced fracture of the left zygoma. A clinically significant result was communicated on 07/18/2023 4:16 PM, Message ID [id number]. Narrative 07/18/2023 4:[address] FACE WITHOUT CONTRAST Referring clinician's provided indication for this examination in Epic: Outside Radiology Order; CLOSED FRACTURE OF MALAR AND/OR MAXILLARY BONES TECHNIQUE: Multidetector-row CT of the face was performed without intravenous contrast using tailored dose modulation techniques. Images were reconstructed in the axial, coronal, and sagittal planes. COMPARISON: Radiographs 06/30/2023 FINDINGS: Aerodigestive Tract: The mucosa appears symmetrical. Salivary Glands: No obvious lesion is present. Petrous Apices, Clivus, Basilar Cisterns, Cavernous Sinuses, Sella, Jugular Foramina and Poststyloid Parapharyngeal Spaces: Normal. No skull base lesion within limitations in the absence of intravenous contrast. Lymph Nodes: There are no nodes meeting CT criteria for pathologic involvement. Brain and Orbits: No gross abnormality is demonstrated in the imaged portions of the brain and orbits within limitations of nontargeted assessment.. Bones and Soft Tissues: There are comminuted fractures of the left anteroinferior and inferolateral maxillary sinus. There is a mildly comminuted fracture of the inferior wall of the orbit anterior to the infraorbital canal. There is a mildly comminuted fracture of the left zygoma. There is mild hyperdensity within the left maxilla suggestive of a small amount of hemorrhage. There is scattered opacification of the ethmoid sinuses. There is mild mucoperiosteal thickening of the right maxillary sinus. Procedure Note Rebekah Dong MD - 07/18/2023 CT FACE WITHOUT CONTRAST Referring clinician's provided indication for this examination in Epic:Outside Radiology Order; CLOSED FRACTURE OF MALAR AND/OR MAXILLARY BONES TECHNIQUE: Multidetector-row CT of the face was performed withoutintravenous contrast using tailored dose modulation techniques. Imageswere reconstructed in the axial, coronal, and sagittal planes. COMPARISON: Radiographs 06/30/2023 FINDINGS: Aerodigestive Tract: The mucosa appears symmetrical. Salivary Glands: No obvious lesion is present. Petrous Apices, Clivus, Basilar Cisterns, Cavernous Sinuses, Sella, Jugular Foramina and Poststyloid Parapharyngeal Spaces: Normal. No skullbase lesion within limitations in the absence of intravenous contrast. Lymph Nodes: There are no nodes meeting CT criteria for pathologicinvolvement. Brain and Orbits: No gross abnormality is demonstrated in the imagedportions of the brain and orbits within limitations of nontargetedassessment.. Bones and Soft Tissues: There are comminuted fractures of the leftanteroinferior and inferolateral maxillary sinus. There is a mildlycomminuted fracture of the inferior wall of the orbit anterior to theinfraorbital canal. There is a mildly comminuted fracture of the leftzygoma. There is mild hyperdensity within the left maxilla suggestive of asmall amount of hemorrhage. There is scattered opacification of theethmoid sinuses. There is mild mucoperiosteal thickening of the rightmaxillary sinus. IMPRESSION: 1. Comminuted fractures of the left anteroinferior and inferolateralmaxillary sinus with mildly hyperdense material within the maxillary sinussuggestive of hemorrhage. 2. Mildly comminuted nondisplaced fracture of the inferior orbital wallanterior to the infraorbital canal. 3. Mildly comminuted nondisplaced fracture of the left zygoma. A clinically significant result was communicated on 07/18/2023 4:16 PM,Message ID [id number]. Ashly DIAZ IMG CT HEAD/NECK Final Resu lt documented in this encounter Visit Diagnoses Diagnosis Maxillary fracture, left side, initial encounter for closed fracture- Primary Maxillary fracture, left side, initial encounter for closed fracture documented in this encounter Care Teams Clinical Mental Health Counselor Relationship Specialty Start Date End Date Stevie Coon DO PCP - General Internal Medicine 01/04/18 06/16/24 Stevie Coon DO [address] [place] [address] PCP - General Internal Medicine 06/17/24 Stevie Coon DO [address] [place] [address] Insurance Assigned Provider 08/29/23 documented as of this encounter Additional Source Comments The information contained in this document represents components of the legal health record. It is not the complete legal health record.[facility]
--- OUTSIDE RECORDS SUMMARY | 2025-05-20 18:59 | XMS_ITS | Clinical Summary ---
Author Organization [facility] [place] [address] Care Team Providers Care Observation Nurse Name Role Phone Stevie Coon DO Primary Care Provider [phone] Allergies No known active allergies Social History Tobacco Use Types Packs/Day Years Used Date Smoking Tobacco: Never Assessed Sex and Gender Information Value Date Recorded Sex Assigned at Not on file Legal Sex Male 4:51 PM EDT Gender Identity Not on file Sexual Orientation Not on file Last Filed Vital Signs Vital Sign Reading Time Taken Comments Blood Pressure 131/81 11/21/2018 10:00 PM EDT Pulse 62 11/21/2018 10:00 PM EDT Temperature 37 C (98.6 F) 11/21/2018 10:00 PM EDT Respiratory Rate 16 11/21/2018 10:00 PM EDT Oxygen Saturation 99% 11/21/2018 10:00 PM EDT Inhaled Oxygen Concentration - - Weight 88.5 kg (195 lb) 11/21/2018 5:10 PM EDT Height 182.9 cm (6') 11/21/2018 5:10 PM EDT Body Mass Index 26.45 11/21/2018 5:10 PM EDT Plan of Treatment Health Maintenance Due Date Last Done Comments HIV screen 09/06/2009 Hepatitis C Screening 09/06/2009 Hepatitis B vaccine (0-59 yrs) and Risk (1) 09/06/2010 Tetanus/Diphtheria/Pertussis Vaccines (1 - Tdap) 09/06 Covid-19 Vaccine (1 - 2024- season) 2025 Influenza (Flu) vaccine (1 o f 1 - Influenza standard series) 01/23/2025 Care Teams Observation Nurse Relationship Specialty Start Date End Date Stevie Coon DO [address] [place] [address] PCP - General General Internal Medicine 11/21/18
--- OUTSIDE RECORDS SUMMARY | 2025-05-20 18:59 | XMS_ITS | Encounter Summary ---
Author Organization [facility] Address [address] [facility] [address] [place] [address] Phone Care Team Providers Care Merchant Tailor Name Role Phone Stevie Coon Unavailable Stevie Coon Gus DO Primary Care Provider [phone] Encounter Details Date Type Department Care Team (Late st Contact Info) Description 09/05/2024 Procedure Pass [facility], Ct Scan - [address] [address] Social History Tobacco Use Types Packs/Day Years [...] on filedocumented in this encounter Care Teams Merchant Tailor Relationship Specialty Start Date End Date Stevie Coon DO [address] [place] [address] [email or web address] PCP - General Internal Medicine 06/17/24 Stevie Coon DO [address] [place] [address] Insurance Assigned Provider 08/29/23 documented as of this encounter Additional Source Comments The information contained in this document represents components of the legal health record. It is not the complete legal health record.[facility]
--- OUTSIDE RECORDS SUMMARY | 2025-05-20 18:59 | XMS_ITS | Encounter Summary ---
Author Organization [facility] Address [address] [facility] [address] [place] [address] Phone Care Team Providers Care Flyer Builder Name Role Phone Bigda, Stevie A DO Primary Care Provider [phone] Bigda, Stevie A DO Unavailable Bigda, Stevie A DO Primary Care Provider [phone] Encounter Details Date Type Department Care Team (Late st Contact Info) Description 06/10/2024 Transcribe Orders Virtual Department [address] [place] [address] Ashyl Ge PA [address] [place] [address] [place] [address] Social History Tobacco Use Types Packs/Day Years [...] on filedocumented in this encounter Care Teams Flyer Builder Relationship Specialty Start Date End Date Stevie Coon DO [email or web address] PCP - General Internal Medicine 01/04/18 06/16/24 Stevie Coon DO [address] [place] [address] [email or web address] PCP - General Internal Medicine 06/17/24 Stevie Coon DO [address] [place] [address] [email or web address] Insurance Assigned Provider 08/29/23 documented as of this encounter Additional Source Comments The information contained in this document represents components of the legal health record. It is not the complete legal health record.[facility]
[2025-05-20 19:06] VITALS: BP 129/64; PULSE 80; RESP 16; O2SAT 99
[2025-05-20 20:46] LABS: MANUAL DIFF FLAG NO
[2025-05-20 20:47] LABS: Hematocrit 37.8 % (42.0-52.0); Hemoglobin 13.3 g/dl (14.0-18.0); Imm Gran Abs Auto 0.02 X10*3/uL (0.00-0.03); Imm Gran Pct Auto 0.2 % (0.0-0.4); Lymphocytes Absolute Auto 1.0 X10*3/uL (1.2-4.9); Mean Corpuscular HGB Conc 35.2 g/dl (31.0-36.0); Mean Corpuscular Hemoglobin 29.8 pg (27.0-33.0); Mean Corpuscular Volume 84.6 fL (80.0-98.0); NRBC Abs Auto 0.000 X10*3/uL (0.0-0.012); NRBC Pct Auto 0.0 /100WBC (0.0-0.2); Platelet Count 257 X10*3/uL (160-400); Red Blood Count 4.47 X10*6/uL (4.60-5.80); White Blood Count 10.9 X10*3/uL (4.8-10.8)
[2025-05-20 21:00] LABS: Anion Gap 10 (12-20); Blood Urea Nitrogen 14 mg/dL (9-16); Calcium 8.2 mg/dL (8.4-10.2); Carbon Dioxide 24 mmol/L (22-29); Chloride 109 mmol/L (96-108); Creatinine Clr Calc Pharmacy 136.7; Estimated Glomerular Filt Rate > 60; Potassium 4.1 mmol/L (3.3-5.1); Sodium 139 mmol/L (135-145)
[2025-05-20 21:36] VITALS: BP 123/58; PULSE 77; RESP 16; TEMP 36.6; O2SAT 96
[2025-05-20 22:08] VITALS: BP 123/58; PULSE 77; RESP 16; TEMP 36.6; O2SAT 96
== END 2025-05-20 22:08 | disposition home or self-care (01) ==
PROVIDERS: Emergency Provider Student in an Organized Health Care Education/Training Program; PCP Internal Medicine
DX: E10.649 Type 1 diabetes mellitus with hypoglycemia without coma (principal); Z96.41 Presence of insulin pump (external) (internal)
CPT/HCPCS: 36415; 80048; 82947; 85025; 96360; 99284